=== PATIENT | female | born 1945 | race Caucasian/White ===

== ENCOUNTER 2022-06-04 09:41 | Emergency (ER) | payer MEDICARE, BC | END 2022-06-04 11:36 | disposition home or self-care (01) | LOC: CSHERS 09:41 | DX: M25.551 Pain in right hip (principal); I10 Essential (primary) hypertension ==

== ENCOUNTER 2022-10-17 14:14 | Outpatient (CLI) | payer MEDICARE, BC | END 2022-10-17 14:15 | disposition home or self-care (01) | LOC: CSHRAD 14:14 | PROVIDERS: ATTEND Internal Medicine Rheumatology | DX: M81.0 Age-related osteoporosis without current pathological fracture (principal); R93.5 Abnormal findings on diagnostic imaging of other abdominal regions, including retroperitoneum; M47.814 Spondylosis without myelopathy or radiculopathy, thoracic region; I70.0 Atherosclerosis of aorta | CPT/HCPCS: 72070 ==

== ENCOUNTER 2022-10-24 10:00 | Outpatient (CLI) | payer MEDICARE, BC | END 2022-10-24 10:01 | disposition home or self-care (01) | LOC: CSHMAMMO 10:00 | PROVIDERS: ATTEND Internal Medicine Rheumatology | DX: M81.0 Age-related osteoporosis without current pathological fracture (principal) | CPT/HCPCS: 77080 ==

== ENCOUNTER 2023-09-07 09:53 | Day surgery (SDC) | payer MEDICARE, BC ==
[2023-09-07 10:40] VITALS: BP 160/92; TEMP 97.2
[2023-09-07 10:40] LABS: PTT 25.8 sec (22.0-33.0)
== END 2023-09-07 12:41 | disposition home or self-care (01) ==
LOC: CSHSDC 09:53
PROVIDERS: ATTEND Specialist
PROC: B246ZZ4 Ultrasonography of Right and Left Heart, Transesophageal (ICD-10-PCS; principal; 2023-09-07)
DX: I51.89 Other ill-defined heart diseases (principal); I47.10 Supraventricular tachycardia, unspecified; I11.9 Hypertensive heart disease without heart failure; M19.90 Unspecified osteoarthritis, unspecified site; R32 Unspecified urinary incontinence; M81.0 Age-related osteoporosis without current pathological fracture; E04.1 Nontoxic single thyroid nodule; D64.9 Anemia, unspecified; Z90.49 Acquired absence of other specified parts of digestive tract; Z90.89 Acquired absence of other organs; Z98.890 Other specified postprocedural states; Z96.651 Presence of right artificial knee joint
CPT/HCPCS: 85610; 85730; 93312

== ENCOUNTER 2024-05-01 11:32 | Emergency (ER) | payer MEDICARE, BC ==
[2024-05-01 12:40] LABS: #Basophils Less than 0.03 10x3/uL (0.0-0.2); #Eosinophils 0.09 10x3/uL (0.0-0.5); #Monocytes 0.53 10x3/uL (0.0-1.1); #Neutrophils 3.58 10x3/uL (1.5-8.4); %Basophils 0.3 % (0.0-2.0); %Eosinophils 1.5 % (0.0-6.0); %Monocytes 8.9 % (0.0-10.0); %Neutrophils 60.1 % (40.0-75.0); Hematocrit 41.4 % (34.9-44.5); Hemoglobin 13.7 g/dL (12.0-15.5); Mean Corpuscular HGB CONC 33.1 g/dL (32.0-36.0); Mean Corpuscular Hemoglobin 29.8 pg (27.0-33.0); Mean Corpuscular Volume 90.2 fL (81.6-98.3); Mean Platelet Volume 10.9 fL (7.4-10.4); Platelet Count 122 10x3/uL (150-450); RBC Distribution Width 12.8 % (11.5-14.5); Red Blood Cell (RBC) Count 4.59 10x6/uL (3.90-5.03); White Blood Cell (WBC) Count 5.96 10x3/uL (3.5-10.5)
[2024-05-01] MEDS ORDERED: Aspirin 325 MG TAB ONE (12:42)
[2024-05-01 12:48] LABS: INR-International Normal Ratio 1.1; Prothrombin Time 11.7 sec (9.5-12.1)
[2024-05-01 12:52] LABS: ALT (SGPT) 15 U/L (Less than 34); AST (SGOT) 23 U/L (11-34); Albumin 4.2 g/dL (3.1-4.5); Alkaline Phosphatase 98 U/L (40-110); Anion Gap 12 mmol/L (10-20); BUN (Urea Nitrogen) 27 mg/dL (9.8-20.1); Bilirubin, Total 0.8 mg/dL (0.3-1.2); Calc. Creatinine Clearance 0 mL/min (70-130); Calcium 9.3 mg/dL (7.8-10.44); Carbon Dioxide 26 mmol/L (23-31); Chloride 108 mmol/L (98-107); Estimated GFR 65; Globulin 3.1 g/dL (2.4-3.5); Glucose 71 mg/dL (83-110); Potassium 3.7 mmol/L (3.5-5.1); Protein, Total 7.3 g/dL (5.8-8.1); Sodium 142 mmol/L (136-145)
[2024-05-01 13:10] LABS: Troponin I Less than 0.010 ng/mL (< 0.028)
[2024-05-01 14:54] LABS: Bilirubin Neg (Negative); Blood, Urine Negative (Negative); Clarity Clear (Clear); Glucose, Urine (Dipstick) Normal (Negative); Ketone, Urine Negative (Negative); Leukocyte 25 (Negative); Nitrite Negative (Negative); Protein, Urine (Dipstick) 15 mg/dl (Neg-Trace); Specific Gravity, Urine 1.005 (1.005-1.030); Urobilinogen Normal mg/dL (Less than 2)
[2024-05-01 15:24] LABS: CAUTI Indications for Culture Alt mental st,lethar; RBC/HPF 0-3 HPF (0-3); WBC/HPF 0-3 HPF (0-3)
[2024-05-01 15:26] LABS: Bacteria/HPF 1+ HPF (None Seen)
[2024-05-01 15:27] LABS: Transitional Epithelial 0-3 HPF (None Seen)
[2024-05-01 15:30] LABS: Urine Culture Reflex No No
== END 2024-05-01 15:57 | disposition home or self-care (01) ==
LOC: CSHERS 11:32
DX: I63.9 Cerebral infarction, unspecified (principal); I10 Essential (primary) hypertension
CPT/HCPCS: 0042T; 70450; 70551; 71045; 80053; 81001; 82962; 84484; 85025; 85610; 85730; 93005; 94760; 36416